=== PATIENT | female | born 1995 ===

== ENCOUNTER 2017-07-11 05:59 | Emergency (ER) | payer OTHER ==
[~2017-07-11] VITALS: Ht 167.6 cm; Wt 69.7 kg
[2017-07-11 06:04] VITALS: TEMP 37.4; Ht 167.6 cm; Wt 69.7 kg
[2017-07-11] MEDS ORDERED: IBUP-103 PO (06:15)
[2017-07-11] MEDS ORDERED: ONDA4TAB10 SL (07:05)
--- NOTE | 2017-07-11 07:06 | EMERGENCY ROOM VISIT NOTE ---
History Report prepared by Abhijit: Di Kendrick Under the Supervision of: Dr. Forrest Rasheed D.O. First contact with patient: 06:40 Chief Complaint: FEVER Stated Complaint: FEVER, VOMITING, HEADACHE, ABD PAIN, DIARRHEA History of Present Illness The patient is a 21 year old female who presents to the Emergency Room with complaints of intermittent vomiting beginning yesterday evening. Her symptoms worsened throughout the night. She reports headache, rhinorrhea, sore throat, nausea, vomiting, diarrhea, and generalized body aches and chills. She has felt feverish. She has been taking ibuprofen for pain. The patient states that her diarrhea has resolved at this time but she is still feeling unwell. Source of History: patient Onset: yesterday evening Position: abdomen Quality: other (vomiting) Timing: intermittent Modifying Factors (Relieving): ibuprofen Associated Symptoms: + chills, + headache, + sorethroat, + nausea, + vomiting, + diarrhea Note: Pt reports rhinorrhea and generalized body aches. Review of Systems See HPI for pertinent positives & negatives. A total of 10 systems reviewed and were otherwise negative. Past Medical & Surgical Medical Problems: (1) No significant medical problems Family History Patient reports no known family medical history. Social History Smoking Status: Never Smoker Housing Status: lives with roommate Occupation Status: [employer] student Current/Historical Medications Scheduled PRN Ibuprofen Tab (Advil), 200-600 MG PO Q4H PRN for Pain or Fever Allergies Coded Allergies: No Known Allergies (Unverified , 07/11/17) Physical Exam Vital Signs Date Time Temp Pulse Resp B/P (MAP) Pulse Ox O2 Delivery O2 Flow Rate FiO2 07/11/17 06:04 37.4 120 20 129/77 100 Room Air Physical Exam CONSTITUTIONAL/VITAL SIGNS: Reviewed / noted above. GENERAL: Non-toxic in appearance. INTEGUMENTARY: Warm, dry, and [place]. HEAD: Normocephalic. EYES: without scleral icterus or trauma. ENT/OROPHARYNX: clear and moist. LYMPHADENOPATHY/NECK: Is supple without lymphadenopathy or meningismus. RESPIRATORY: Lungs clear and equal. CARDIOVASCULAR: Regular rate and rhythm. GI/ABDOMEN: Soft and nontender. No organomegaly or pulsatile mass. No rebound or guarding. Normal bowel sounds. EXTREMITIES: Warm and well perfused. BACK: No CVA tenderness. NEUROLOGICAL: Intact without focal deficits. PSYCHIATRIC: normal affect. MUSCULOSKELETAL: Normally developed with good muscle tone. Medical Decision & Procedures ED Course 0640: Previous medical records were reviewed. The patient was evaluated in room A10. A complete history and physical examination was performed. At this time the patient did not want any further testing because she was concerned about her insurance. She requested a note for school. I discussed the results and treatment plan with the patient. I answered all pertaining questions that she had. She expressed understanding and verbalized agreement. The patient will be discharged home. Medical Decision Differential includes viral illness, influenza, streptococcal pharyngitis, meningitis, pneumonia, sinusitis, UTI, pyelonephritis, and otitis media. This is a 21-year-old female who presents to the ED with a chief complaint of nausea, vomiting and diarrhea as well as some achiness, congestion and a slight sore throat. The patient states that her symptoms started last evening. She was concerned about having food poisoning or a viral syndrome. The patient states that she was not feeling well throughout the night but her symptoms seem to be slightly better this morning. She is unsure about her insurance and does not want any specific treatment done. She does report that she has a microbiology lab this morning that she does not feel well enough to go to. Her exam was relatively unremarkable. The patient's vital signs are stable. After evaluating this patient, she may have food poisoning or a viral syndrome causing the vomiting and diarrhea. She was sent a prescription for Zofran. She was given an excuse for school. She is felt to be stable for discharge. Medication Reconcilliation Current Medication List: was personally reviewed by me Blood Pressure Screening Patient's blood pressure: Normal blood pressure Impression Primary Impression: Vomiting and diarrhea Scribe Attestation The scribe's documentation has been prepared under my direction and personally reviewed by me in its entirety. I confirm that the note above accurately reflects all work, treatment, procedures, and medical decision making performed by me. Departure Information Dispostion Home / Self-Care Prescriptions Ondasetron Odt (ZOFRAN ODT) 4 Mg Tab 4 MG SL Q6H for Nausea, #15 TAB Prov: Forrest Rasheed D.O. 07/11/17 Referrals No Doctor, Assigned (PCP) Forms HOME CARE DOCUMENTATION FORM, IMPORTANT VISIT INFORMATION, School Instructions Return To School: 1 day Specific Date: Patient Instructions My [facility] Additional Instructions Zofran: Allow one tablet to dissolve under the tongue every 6 hours as needed for nausea or vomiting. Follow-up with [facility] services if symptoms worsen
[2017-07-11 07:11] VITALS: BP 123/80; PULSE 115; O2SAT 100
== END 2017-07-11 07:12 | disposition home or self-care (01) ==
LOC: C.EDB 06:02 → C.EDA 07:12
DX: R11.2 Nausea with vomiting, unspecified (principal); R19.7 Diarrhea, unspecified